=== PATIENT | male | born 1990 | race Caucasian/White ===

== ENCOUNTER 2021-12-19 12:05 | Observation (INO) ==
[2021-12-19 13:26] LABS: Basophils # 0.1 K/mcL (0.0-0.2); Basophils % 0.6 %; Eosinophils # 0.3 K/mcL (0.0-0.6); Eosinophils % 3.1 %; Hematocrit 48.4 % (37.5-50.1); Hemoglobin 16.5 g/dL (12.9-16.9); Immature Granulocytes % 0.8 % (0-4); Lymphocytes % 23.1 %; Mean Corpuscular HGB Conc 34.1 g/dL (31.6-35.5); Mean Corpuscular Hemoglobin 32.9 pg (28.0-33.3); Mean Corpuscular Volume 96.6 fL (83.0-100.0); Mean Platelet Volume 10.5 fL (9.4-12.4); Monocytes # 0.5 K/mcL (0.0-1.3); Monocytes % 6.4 %; Neutrophils # 5.6 K/mcL (1.6-8.9); Platelet Count 187 K/mcL (140-400); Red Blood Count 5.01 M/mcL (4.19-5.50); Red Cell Distribution Width 12.2 % (11.5-14.5); White Blood Count 8.4 K/mcL (4.3-11.1)
[2021-12-19 13:28] LABS: Prothrombin Time 11.5 Seconds (9.4-12.1)
[2021-12-19 13:30] LABS: Activated Partial Thrombo Time 32.7 Seconds (26.0-36.0)
[2021-12-19 14:05] LABS: Alanine Aminotransferase 39 Units/L (7-52); Albumin 4.4 g/dL (3.5-5.7); Albumin/Globulin Ratio 1.9 (1.1-2.2); Alkaline Phosphatase 60 Units/L (34-104); Aspartate Amino Transferase 30 Units/L (13-39); BUN/Creatinine Ratio 16 (6-26); Bilirubin,Total 0.6 mg/dL (0.3-1.0); Blood Urea Nitrogen 13 mg/dL (6-20); Calcium 9.3 mg/dL (8.6-10.3); Carbon Dioxide 26 mEq/L (23-29); Chloride 105 mEq/L (98-107); Globulin 2.3 g/dL (2.4-3.5); Glucose 121 mg/dL (70-105); Osmolality,Calculated 289 (280-300); Sodium 139 mEq/L (136-145); Total Protein 6.7 g/dL (6.4-8.9); eGFR For African Americans > 60 (> 60); eGFR For Non-African Americans > 60 (> 60)
[2021-12-19] MEDS ORDERED: Isovue-370 500 ML BOTTLE IVP ONE (14:23)
[2021-12-19 14:58] LABS: Troponin I 0.25 ng/mL (< 0.04)
[2021-12-19] MEDS ORDERED: *HR* Heparin 5,000 UNIT/ML VIAL IVP ONE (15:06)
[2021-12-19] MEDS ORDERED: *HR* Heparin 5,000 UNIT/ML VIAL IVP PRN ×2 (15:06)
[2021-12-19] MEDS ORDERED: Heparin 25,000UNIT/250ML 1/2NS 25,000 UNIT/250 ML IV.SOLN IVC SCH ×2 (15:15→17:30)
[2021-12-19] MEDS ORDERED: Naloxone 0.4 MG/ML INJ IVP PRN (15:26)
[2021-12-19] MEDS ORDERED: Acetaminophen 325 MG TABLET PO PRN (15:26)
[2021-12-19] MEDS ORDERED: Ondansetron 4 MG/2 ML VIAL IVP PRN (15:26)
[2021-12-19] MEDS ORDERED: Aspirin Enteric Coated 325 MG Tablet PO ONE (15:29)
[2021-12-19] MEDS ORDERED: Nitroglycerin 0.4 MG TAB.SUBL SL PRN (15:31)
[2021-12-19] MEDS ORDERED: Perflutren Lipid Microsphere 1.3 ML in 0.9 % Sodium Chloride 8.7 ML IVP PRN (15:59)
[2021-12-19] MEDS: carvediloL 6.25 MG TABLET PO SCH (18:57)
[2021-12-20 03:09] LABS: Amphetamine Screen,Urine Negative ng/mL (Cutoff=1000); Barbiturate Screen,Urine Negative ng/mL (Cutoff=200); Benzodiazepines Screen,Urine Negative ng/mL (Cutoff=200); Cannabinoid Screen,Urine Positive ng/mL (Cutoff = 50); Cocaine Screen,Urine Negative ng/mL (Cutoff= 300); Opiate Screen,Urine Negative ng/mL (Cutoff=300); Phencyclidine Screen,Urine Negative ng/mL (Cutoff=25)
[2021-12-20 03:31] LABS: BUN/Creatinine Ratio 21 (6-26); Blood Urea Nitrogen 16 mg/dL (6-20); Carbon Dioxide 25 mEq/L (23-29); Chloride 106 mEq/L (98-107); Chol/HDL Ratio 5.1 (0-4.9); Cholesterol 172 mg/dL (< 200); Glucose 100 mg/dL (70-105); HDL Cholesterol 34 mg/dL (40-59); LDL Cholesterol,Calculated 107 mg/dL (< 100); Magnesium 1.9 mg/dL (1.6-2.6); Osmolality,Calculated 285 (280-300); Phosphorous 3.6 mg/dL (2.7-4.5); Potassium 4.1 mEq/L (3.5-5.1); Sodium 137 mEq/L (136-145); Triglycerides 155 mg/dL (< 150); eGFR For African Americans > 60 (> 60); eGFR For Non-African Americans > 60 (> 60)
[2021-12-20] MEDS ORDERED: Aspirin Enteric Coated 81 MG Tablet PO SCH (09:00)
[2021-12-20] MEDS: carvediloL 6.25 MG TABLET PO SCH (09:20)
[2021-12-20 14:29] VITALS: BP 134/87; PULSE 84; TEMP 97.8; O2SAT 95
== END 2021-12-20 16:18 | disposition home or self-care (01) ==
LOC: 3BNU 12:05 → EMEROOARM 12:05 → SUATTDRO 16:19 → 3BNU 16:30
PROVIDERS: ADMIT Student in an Organized Health Care Education/Training Program; ATTEND Internal Medicine